=== PATIENT | male | born 1940 | race Caucasian/White ===

== ENCOUNTER → 2022-05-11 | Outpatient (CLI) | payer MEDICARE, BC ==
--- NOTE | 2022-06-14 23:00 | EM ---
EVENT MONITOR INDICATION: Cardiac arrhythmia. This event monitor showed sinus rhythm with rare PVCs and PACs, and episodes of sinus tachycardia. There were no significant episodes of sustained ventricular or supraventricular tachyarrhythmias. There were no episodes of atrial fibrillation. MMODL / IJN: [id number] /
== END | disposition home or self-care (01) ==
LOC: RADECHMAIN 12:23
PROVIDERS: ATTEND Psychiatry & Neurology Neurology
DX: I49.9 Cardiac arrhythmia, unspecified (principal)
CPT/HCPCS: 93270

== ENCOUNTER → 2022-05-20 | Outpatient (CLI) | payer MEDICARE, BC ==
--- NOTE | 2022-05-21 17:19 | MR ---
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 Performed on a separate workstat ion. MRA neck: Multiplanar, multi-sequence imaging as well as [id number] and phase was performed extra cranial vasculature of the neck. 3-D reformatted images and maximum intensity projection reformatted images were submitted for evaluation, these are performed on a separate workstation. IV Contrast: 10 cc Gadavist Findings: Vertebral arteries: The vertebral arteries are patent. The left vertebral artery is dominant. The int racranial portion of the right vertebral artery is poorly visualized due to motion it is noted that i s diminutive in size extending throughout the neck. Basilar artery: The basilar artery is intact. The basilar artery bifurcation is normal. Internal Carotid arteries: The cervical, petrous, cavernous and supraclinoid segments are normal. ISHAN: Patent with no evidence of aneurysm. ACOM: Present without evidence of aneurysm. MCA: Patent with no evidence of aneurysm. RADIATION ONCOLOGY MANAGER: Patent with no evidence of aneurysm. PCOM: Hypoplastic bilaterally. RIGHT CAROTID SYSTEM: The common carotid artery is patent. The carotid bifurcations demonstrates athe rosclerotic plaque with at least 50-70% stenosis. The internal carotid arteries patent. LEFT CAROTID SYSTEM: The common carotid artery is patent. The carotid bifurcations demonstrates no e vidence for hemodynamically significant stenosis. The internal carotid arteries patent. The origins of the great vessels and vertebral arteries appear unremarkable. The left vertebral edgardo ry is dominant and right is diminutive. Evaluation of the intracranial portion of the right vertebral artery is limited given its diminutive appearance and motion artifact. IMPRESSION: 1. No evidence of intracranial aneurysm or significant stenosis. 2. Diminutive right vertebral artery extending from its origin throughout the extracranial portions. Motion limits evaluation of the intracranial portion. 3. Atherosclerotic plaque at the right carotid bifurcation with at least 50-70% stenosis. This corre lates with ultrasound finding of the reported peak systolic velocities on 04/08/2022. 4. The left carotid bifurcation is patent.
== END | disposition home or self-care (01) ==
LOC: RADMRIMAIN 11:05
PROVIDERS: ATTEND Psychiatry & Neurology Neurology
DX: I65.23 Occlusion and stenosis of bilateral carotid arteries (principal); I69.30 Unspecified sequelae of cerebral infarction
CPT/HCPCS: 70544; 70549; A9585

== ENCOUNTER → 2024-05-23 | Outpatient (CLI) | payer MEDICARE, BC ==
--- NOTE | 2024-05-23 13:40 | US ---
EXAMINATION TYPE: US carotid duplex BILAT DATE OF EXAM: 05/23/2024 COMPARISON: Carotid ultrasound , MRA head and neck 05/20/2022 CLINICAL INDICATION: Male, 83 years old with history of I65.29 OCCLUSION AND STENOSIS OF UNSPECIFIED CAROT; stenosis Additional History: .... TECHNIQUE: Grayscale, color Doppler and spectral Doppler evaluation of the bilateral carotid systems and vertebral arteries. Indirect Doppler criteria was utilized. FINDINGS: EXAM MEASUREMENTS: RIGHT: Peak Systolic Velocity (PSV) cm/sec ----- Right CCA: 84.2 ----- Right ICA: 174 ----- Right ECA: 131 ICA/CCA ratio: 2.1 RIGHT: End Diastole cm/sec ----- Right CCA: 13.2 ----- Right ICA: 23.6 ----- Right ECA: 4.5 LEFT: Peak Systolic Velocity (PSV) cm/sec ----- Left CCA: 95.1 ----- Left ICA: 91.5 ----- Left ECA: 133 ICA/CCA ratio: 1.0 LEFT: End Diastole cm/sec ----- Left CCA: 16.3 ----- Left ICA: 21.7 ----- Left ECA: 0 VERTEBRALS (direction of flow): Right Vertebral: Antegrade Left Vertebral: Antegrade Rhythm: Normal GIS MAPPING TECHNICIAN NOTES: Color Doppler imaging shows patency with blood flow throughout the carotid artery. Spectral waveforms are within normal limits. IMPRESSION: Right: 50-69% stenosis of the carotid bifurcation. Left: No hemodynamically significant stenosis. Criteria for Assigning % of Stenosis / Diameter reduction (Estimation based on the indirect measurements of the internal carotid artery velocities (ICA PSV). 1. Normal (no stenosis)=ICA PSV < 125 cm/s: ratio < 2.0: ICA EDV<40 cm/s. 2. Less than 50% stenosis=ICA PSV < 125 cm/s: ratio < 2.0: ICA EDV<40 cm/s. 3. 50 to 69% stenosis=ICA PSV of 125 to 230 cm/s: ration 2.0 ? 4.0: ICA EDV 40-100 cm/s. 4. Greater than 70% stenosis to near occlusion= ICA PSV > 230 cm/s: ratio > 4.0: ICA EDV > 100 cm/s. 5. Near occlusion= ICA PSV velocities may be low or undetectable: variable ratio and ICA EDV. 6. Total occlusion=unable to detect flow. [facility], , 05/23/2024 1:38 PM
== END | disposition home or self-care (01) ==
LOC: RADUSWWP 13:02
PROVIDERS: ATTEND Psychiatry & Neurology Neurology
DX: I65.23 Occlusion and stenosis of bilateral carotid arteries (principal)
CPT/HCPCS: 93880